=== PATIENT | female | born 1945 | race Caucasian/White ===

== ENCOUNTER → 2017-02-20 | Outpatient (CLI) | payer OTHER, BC ==
[2016-05-18 11:10] VITALS: BP 105/62
--- NOTE | 2017-02-20 12:00 | RAD ---
History: Back pain after coughing Study: Three views of the thoracic spine Comparison: None Findings: There is normal alignment without fracture or compression or disc space narrowing or signi ficant osteophyte formation. The visualized ribs are unremarkable. Impression: Negative Reported By:
== END ==
LOC: RAD 10:49
PROVIDERS: ATTEND Internal Medicine
DX: M54.6 Pain in thoracic spine (principal)
CPT/HCPCS: 72072

== ENCOUNTER 2017-11-09 12:37 | Emergency (ER) | payer OTHER, BC ==
[2017-11-09 12:42] VITALS: BP 131/62; BMI 24.0
--- NOTE | 2017-11-09 13:02 | DR.EXTPAIN ---
HPI - Time seen Time seen: 13:00 - PCP Primary Care PhysicianMendy ARANA - HPI Comment HPI Comment: PAIN DISTURBING PATIENTS SLEEP. NO TRAUMA. - Complaint/Symptoms Chief Complaint Doctor Comments: LEFT LEG PAIN WITH KNOT BEHIND LT KNEE TIMES 2 DAYS. Chief Complaint:: PT C/O LT LEG PAIN. PT STATES SHE HAS BEEN HAVING PAIN THAT STARTED A FEW DAYS AGO. PT STATES SHE HAS NOT BEEN ABLE TO SLEEP DUE TO THE PAIN. PT ALSO STATES SHE HAS A KNOT BESIDE HER LT KNEE PT STATES THE AREA IS WARM TO TOUCH. - Nurses notes reviewed Nurses Notes Review: Yes - Source History Provided: Patient - Mode of arrival Mode of Arrival: Ambulatory - Timing Onset of Chief Complaint: 11/07/17 - Context History of: None - Associated signs and symptoms Associated Signs and Symptoms: Pain PMH - PMH Past Medical History: Yes Past Medical History: COPD Past Surgical History: Yes Surgical History: Hysterectomy, Ortho Surgery Past Surgical History Comment: BACK AND SHOULDER - Family History History of Family Medical Conditions: No - Social History Does any household member use tobacco: No Alcohol Use: None Do you use any recreational Drugs:: No Lives With: Alone Lives Where: Home - infectious screening In the last 2 months have you had wt loss of >10#?: NO Have you had fever, night sweats or hemotysis?: No Have you traveled outside the country in the last 6 months?: No Isolation: Standard ROS - Review of Systems Constitutional: No Symptoms Reported Eyes: No Symptoms Reported ENTM: No Symptoms Reported Respiratoy: No Symptoms Reported Cardiovascular: No Symptoms Reported Gastrointestinal/Abdominal: No Symptoms Reported Genitourinary: No Symptoms Reported Neurological: No Symptoms Reported Musculoskeletal: Left, Leg Integumentary: No Symptoms Reported Hematologic/Lymphatic: No Symptoms Reported Endocrine: No Symptoms Reported All Other Systems: Reviewed and Negative PE - Vital Signs Vitals: Temperature 97.8 F Pulse Rate 69 Respiratory Rate 20 Blood Pressure 131/62 O2 Sat by Pulse Oximetry 98 - General Limitations: No Limitations General Appearance: Alert - Head Head Exam: Normal Inspection - Eyes Eye exam: Normal Appearance - ENT ENT Exam: Normal External Ear Exam - Neck Neck Exam: Trachea Midline - Chest Chest Inspection: Symmetric Chest Wall Rise - Respiratory Respiratory Exam: Normal Lung Sounds Bilat Respiratory Exam: Bilateral Clear to Auscultation - Abdominal Exam Abdominal Exam: Normal Inspection - Extremities Extremities Exam: Tenderness - Lower Extremities Neurovascular/Tendon Exam: Normal Capillary Refill Gait Exam: Observed and Normal - Back Back Exam: Normal Inspection - Neurological Neurological Exam: Alert, Oriented X3 - Psychiatric Psychiatric Exam: Normal Affect, Normal Mood MDM - Differential Diagnosis Differential Diagnosis: Other (DVT, MUSCULOSKELETAL PAIN) Course - Treatment Treatment: SEE ORDERS - Education/Counseling Education/Counseling: Patient, Education Educated On: Diagnosis, Needs for Follow Up ROR - Labs Reviewed Laboratory Results Reviewed?: Yes Laboratory: D-Dimer 185 ng/mL (0-400) 11/09/17 13:15 - XRAY XRAY Interpreted by: Radiologist - Diagnosis Discharge Problem: Tendinitis Knee pain Qualifiers: Chronicity: acute Laterality: left Qualified Code(s): M25.562 - Pain in left knee - Discharge Plan Disposition: 01 HOME, SELF-CARE Condition: Stable Prescriptions: Ibuprofen [MOTRIN TAB 600 MG *] 600 mg PO TID PRN #30 tab PRN Reason: Pain/Inflammation - Follow ups/Referrals Follow ups/Referrals: Baljinder Arana [Primary Care Provider] - 3 days - Instructions Instructions: Musculoskeletal Pain, Tendinitis, [id number], Knee Pain, Adult , [id number] Additional Instructions: RETURN TO ED IF WORSE.
[2017-11-09] MEDS ORDERED: TORADOL 60 MG VIAL IM ONE (13:10)
--- NOTE | 2017-11-09 13:26 | RAD ---
HISTORY: Pain and swelling left knee Study: Left knee AP and lateral Comparison: None Findings: There is no evidence for acute bone or acute joint abnormality. No fracture, lytic, or blastic lesion is identified. No joint erosion or joint effusion is present. IMPRESSION: No significant abnormality identified Reported By:
[2017-11-09] MEDS ORDERED: TORADOL 60 MG VIAL ONE (13:56)
== END 2017-11-09 14:18 | disposition home or self-care (01) ==
LOC: ER 12:54
DX: M77.9 Enthesopathy, unspecified (principal); M25.562 Pain in left knee
CPT/HCPCS: 36415; 73560; 85378; 96372; 99282; J1885

== ENCOUNTER → 2017-11-15 | Outpatient (CLI) | payer OTHER, BC ==
[2017-11-09 12:42] VITALS: BP 131/62
--- NOTE | 2017-11-15 09:28 | VAS ---
HISTORY: Pain and swelling of left lower extremity status post trauma. Study: Left lower extremity ultrasound. Comparison: None. TECHNIQUE: Multiple campa scale and color flow Doppler images of the deep venous system were obtained of the left lower extremity. FINDINGS: The deep venous system of the left lower extremity was evaluated from the level of the common femoral vein through the popliteal vein. Normal color flow and augmentation can be observed. In addition, normal compression is seen throughout the deep venous system. IMPRESSION: Negative for DVT. Reported By:
== END ==
LOC: RAD 08:43
PROVIDERS: ATTEND Internal Medicine
DX: R60.1 Generalized edema (principal); M79.662 Pain in left lower leg
CPT/HCPCS: 93971

== ENCOUNTER → 2017-12-05 | Outpatient (CLI) | payer OTHER, BC ==
[2017-11-09 12:42] VITALS: BP 131/62
--- NOTE | 2017-12-05 14:33 | MRI ---
MRI left knee without contrast Indication: Left knee pain Technique: Multisequence, multiplanar MR images of the left knee were obtained without IV contrast. Comparison: Radiograph 11/09/2017 Findings: No acute fracture or malalignment is identified. There is mild chondrosis of the medial femorotibial compartment with minimal reactive subchondral darell ma of the medial tibial plateau. No large full-thickness cartilage defect identified. The lateral fem orotibial and patellofemoral compartments appear relatively well maintained. There is no significant joint effusion. A small popliteal fossa cyst noted. There is an undersurface horizontal cleavage tear of the medial meniscal body, which propagates into the posterior junctional zone. The lateral meniscus is intact. The ACL and PCL are intact. The superf icial MCL is intact but mildly thickened with small surrounding edema, either reactive from meniscal tear or reflecting grade 1 sprain. The major lateral stabilizers of the knee and extensor mechanism a re unremarkable. Impression: Undersurface horizontal cleavage tear of the medial meniscal body and posterior horn. Mild thickening and edema about the intact superficial MCL, either reactive from meniscal tear or rep resenting grade 1 sprain. Mild chondrosis of the medial femorotibial compartment, small popliteal fossa cyst. Reported By:
== END | disposition home or self-care (01) | DRG 556 ==
LOC: RAD 13:29
PROVIDERS: ATTEND Internal Medicine
DX: M25.562 Pain in left knee (principal); S83.242A Other tear of medial meniscus, current injury, left knee, initial encounter; X58.XXXA Exposure to other specified factors, initial encounter
CPT/HCPCS: 73721